=== PATIENT | male | born 1940 | race Caucasian/White ===

== ENCOUNTER 2018-09-09 10:43 | Emergency (ER) | payer MEDICARE, OTHER ==
[2018-09-09 11:08] VITALS: RESP 18
[2018-09-09 11:15] LABS: Basophils % (A) 0 %; Eosinophils # (A) 0.1 k/uL (0-0.7); Eosinophils % (A) 1 %; HCT 38.2 % (39.0-53.0); HGB 12.6 gm/dL (13.0-17.5); Lymphocytes # (A) 0.9 k/uL (1.0-4.8); Lymphocytes % (A) 11 %; MCH 28.6 pg (25.0-35.0); MCHC 32.9 g/dL (31.0-37.0); MCV 86.9 fL (80.0-100.0); Mean Platelet Volume 7.4; Monocytes # (A) 0.4 k/uL (0-1.0); Monocytes % (A) 4 %; Neutrophils # (A) 6.8 k/uL (1.3-7.7); Neutrophils % (A) 82 %; Platelet Count 187 k/uL (150-450); RDW 14.5 % (11.5-15.5); WBC 8.3 k/uL (3.8-10.6)
[2018-09-09 11:25] LABS: ALT 43 U/L (21-72); AST 32 U/L (17-59); Albumin 3.9 g/dL (3.5-5.0); Alkaline Phosphatase 91 U/L (38-126); Anion Gap 6 mmol/L; Blood Urea Nitrogen 20 mg/dL (9-20); Calcium 8.9 mg/dL (8.4-10.2); Carbon Dioxide 29 mmol/L (22-30); Chloride 105 mmol/L (98-107); Glucose 102 mg/dL (74-99); Potassium 4.8 mmol/L (3.5-5.1); Sodium 140 mmol/L (137-145); Total Bilirubin 1.2 mg/dL (0.2-1.3); Total Protein 7.7 g/dL (6.3-8.2)
[2018-09-09 11:32] LABS: INR 1.1 (<1.2); Partial Thromboplastin Time 25.5 sec (22.0-30.0); Prothrombin Time 11.2 sec (9.0-12.0)
--- NOTE | 2018-09-09 11:33 | XR ---
EXAMINATION TYPE: XR chest 2V DATE OF EXAM: 09/09/2018 HISTORY: altered mental status. REFERENCE: NONE. FINDINGS: The lungs are overinflated. Heart size is upper limits of normal. There is unfolding of the thoracic aorta. There is minimal atelectasis at the left lung base. No pleural fluid is seen. IMPRESSION: 1. COPD. 2. BORDERLINE CARDIOMEGALY. 3. MINIMAL ATELECTASIS, LEFT LUNG BASE.
[2018-09-09 11:35] LABS: Creatine Kinase 87 U/L (55-170)
--- NOTE | 2018-09-09 11:39 | CT ---
EXAMINATION TYPE: CT brain jose orr DATE OF EXAM: 09/09/2018 COMPARISON: NONE HISTORY: Syncope CT DLP: 1397.7 mGycm Automated exposure control for dose reduction was used. TECHNIQUE: CT scan of the head and cervical spine are performed without contrast. FINDINGS: BRAIN: There are generalized changes of sulcal prominence and ventriculomegaly, compatible with atrop hic change. There is diffuse periventricular white matter lucency, compatible with chronic white jasmyn er ischemic change. There is no acute focal lesion, mass effect or midline shift identified. I do not see evidence of intracranial blood. There is mucoperiosteal thickening involving the maxillary and ethmoidal sinuses. The bony calvarium is intact. IMPRESSION: 1. NO ACUTE INTRACRANIAL ABNORMALITY. 2. DEGENERATIVE CHANGE. 3. CHRONIC SINUS MUCOSAL DISEASE. CERVICAL SPINE: There is emphysematous change within the lungs. There is apical scarring present bila terally. Prevertebral soft tissues are normal. There is a reversal of the normal cervical lordosis. There is a minor antegrade listhesis of C4 on C5 . Alignment is otherwise normal. Atlantoaxial relationships are normal. There is diffuse degenerative disc disease and hypertrophic spondylosis with relative sparing of C2-3. There is diffuse uncoverteb ral joint disease. There is facet arthropathy bilaterally at C2-3 and C3-4 as well as C4-5. No defini te protrusion is seen. No fracture is seen. IMPRESSION: 1. NO ACUTE OSSEOUS LESION. 2. MODERATE DEGENERATIVE CHANGE.
[2018-09-09 11:46] LABS: Creatine Kinase MB 0.5 ng/mL (0.0-2.4); Troponin I <0.012 ng/mL (0.000-0.034)
[2018-09-09] MEDS ORDERED: SODIUM CHLORIDE 0.9% 1,000 ML IV ONE (12:12)
--- NOTE | 2018-09-09 12:13 | ED ---
General Adult HPI - General Chief complaint: Syncope Stated complaint: Syncope Time Seen by Provider: 09/09/18 10:47 Source: patient, EMS, RN notes reviewed, old records reviewed Mode of arrival: EMS Limitations: no limitations - History of Present Illness Initial comments: 78-year-old male presents with syncopal episode. History obtained from the patient, his , and EMS. 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 He was unresponsive for approximately 10 minutes according to his . Patient was breathing during this time with normal color. When he awoke he was somewhat confused for approximately 30 minutes. No jerking movement. No bowel or bladder incontinence. Patient denies any preceding chest pain or palpitations. No history of arrhythmia. Denies pain complaints. No chest pain or abdominal pain. Patient does have history of abdominal aortic aneurysm status post repair. Denies pain or swelling in the lower extremities. Denies headache. Denies vision changes. Denies focal numbness or weakness. He has had cough or cold symptoms over the past one week similar to other family members. He has had decreased oral intake over this time as well. - Related Data Home Medications Medication Instructions Recorded Confirmed Ascorbic Acid [Vitamin C] 1,000 mg PO DAILY 09/09/18 09/09/18 Aspirin [Boyle Aspirin EC] 81 mg PO DAILY 09/09/18 09/09/18 Atorvastatin [Lipitor] 10 mg PO HS 09/09/18 09/09/18 Cholecalciferol [Vitamin D3] 1,000 unit PO DAILY 09/09/18 09/09/18 Cyanocobalamin (Vitamin B-12) 1,000 mcg PO DAILY 09/09/18 09/09/18 [Vitamin B-12] Fish Oil/Dha/Epa [Fish Oil 1,200 1 cap PO DAILY 09/09/18 09/09/18 mg Fish Oil] Tamsulosin [Flomax] 0.4 mg PO HS 09/09/18 09/09/18 Allergies Allergy/AdvReac Type Severity Reaction Status Date / Time No Known Allergies Allergy Verified 09/09/18 11:29 Review of Systems ROS Statement: Those systems with pertinent positive or pertinent negative responses have been documented in the HPI. ROS Other: All systems not noted in ROS Statement are negative. Past Medical History Past Medical History: Hyperlipidemia, Prostate Disorder History of Any Multi-Drug Resistant Organisms: None Reported Additional Past Surgical History / Comment(s): AAA repair Past Psychological History: No Psychological Hx Reported Smoking Status: Former smoker Past Alcohol Use History: Occasional Past Drug Use History: None Reported General Exam Limitations: no limitations General appearance: alert, in no apparent distress Head exam: Present: atraumatic, normocephalic Eye exam: Present: normal appearance, PERRL, EOMI ENT exam: Present: mucous membranes dry, other (Ecchymosis right lateral tongue) Respiratory exam: Present: rales (Faint crackles bilateral lung bases). Absent : respiratory distress, rhonchi GI/Abdominal exam: Present: soft. Absent: distended, tenderness, guarding, rebound Extremities exam: Present: normal inspection, normal capillary refill, other ( Bilateral DP and PT pulses present). Absent: pedal edema Neurological exam: Present: alert, oriented X3, CN II-XII intact. Absent: motor sensory deficit Psychiatric exam: Present: normal affect, normal mood Skin exam: Present: warm, dry, intact. Absent: cyanosis, diaphoretic Course Vital Signs 09/09/18 09/09/18 09/09/18 10:45 11:38 12:37 Temperature 98.2 F Pulse Rate 77 76 80 Respiratory 18 18 18 Rate Blood Pressure 163/99 161/80 152/87 O2 Sat by Pulse 97 98 100 Oximetry 09/09/18 13:12 Temperature Pulse Rate 105 H Respiratory 18 Rate Blood Pressure 160/103 O2 Sat by Pulse 99 Oximetry - Reevaluation(s) Reevaluation #1: 09/09/18 13:08 Patient has witnessed tonic-clonic seizure while emergency department, lasting approximately 3 minutes. He is postictal phase given Ativan and loaded with Blood. EKG Findings - EKG Comments: EKG Findings:: EKG obtained at 1056, normal sinus rhythm, ventricular rate of 76 , PA interval 184, QRS duration 94, QTC 438. EKG obtained at 1146, sinus rhythm , rate 70, PA interval 176, castration 90, QTC 440, no ST segment changes Medical Decision Making - Medical Decision Making 78-year-old male presenting with episode at home where he collapsed and was unresponsive, no witnessed seizure activity at home. Patient does have contusion and ecchymosis to the right tongue on initial evaluation. While in the emergency Department patient has witnessed tonic-clonic seizure lasting approximately 3 minutes. Workup reveals a normal CBC, normal CMP, head CT negative for intracranial hemorrhage or mass effect. Chest x-ray shows cardiomegaly with no other acute findings. Patient has remote history of seizure disorder but has been seizure free for the past 40 years. He is not on any antiepileptics. He is initiated on Keppra in the emergency department. He will be transferred to outside hospital for neurology evaluation. There is no neurology available at this institution. Case discussed with Dr. Anguiano at [facility] who will accept transfer. - Lab Data Result diagrams: 09/09/18 11:05 09/09/18 11:05 Lab Results 09/09/18 09/09/18 09/09/18 Range/Units 11:05 11:05 11:05 WBC 8.3 (3.8-10.6) k/uL RBC 4.40 (4.30-5.90) m/uL Hgb 12.6 L (13.0-17.5) gm/dL Hct 38.2 L (39.0-53.0) % MCV 86.9 (80.0-100.0) fL MCH 28.6 (25.0-35.0) pg MCHC 32.9 (31.0-37.0) g/dL RDW 14.5 (11.5-15.5) % Plt Count 187 (150-450) k/uL Neutrophils % 82 % Lymphocytes % 11 % Monocytes % 4 % Eosinophils % 1 % Basophils % 0 % Neutrophils # 6.8 (1.3-7.7) k/uL Lymphocytes # 0.9 L (1.0-4.8) k/uL Monocytes # 0.4 (0-1.0) k/uL Eosinophils # 0.1 (0-0.7) k/uL Basophils # 0.0 (0-0.2) k/uL PT (9.0-12.0) sec INR (<1.2) APTT (22.0-30.0) sec Sodium 140 (137-145) mmol/L Potassium 4.8 (3.5-5.1) mmol/L Chloride 105 (98-107) mmol/L Carbon Dioxide 29 (22-30) mmol/L Anion Gap 6 mmol/L BUN 20 (9-20) mg/dL Creatinine 0.78 (0.66-1.25) mg/dL Est GFR (CKD-EPI)AfAm >90 (>60 ml/min/1.73 sqM) Est GFR (CKD-EPI)NonAf 86 (>60 ml/min/1.73 sqM) Glucose 102 H (74-99) mg/dL Calcium 8.9 (8.4-10.2) mg/dL Total Bilirubin 1.2 (0.2-1.3) mg/dL AST 32 (17-59) U/L ALT 43 (21-72) U/L Alkaline Phosphatase 91 (38-126) U/L Total Creatine Kinase 87 (55-170) U/L CK-MB (CK-2) 0.5 (0.0-2.4) ng/mL CK-MB (CK-2) Rel Index 0.6 Troponin I <0.012 (0.000-0.034) ng/mL Total Protein 7.7 (6.3-8.2) g/dL Albumin 3.9 (3.5-5.0) g/dL Urine Color Urine Appearance (Clear) Urine pH (5.0-8.0) Ur Specific [place] (1.001-1.035) Urine Protein (Negative) Urine Glucose (UA) (Negative) Urine Ketones (Negative) Urine Blood (Negative) Urine Nitrite (Negative) Urine Bilirubin (Negative) Urine Urobilinogen (<2.0) mg/dL Ur Leukocyte Esterase (Negative) Urine RBC (0-5) /hpf Urine WBC (0-5) /hpf Urine Mucus (None) /hpf 09/09/18 09/09/18 Range/Units 11:05 11:36 WBC (3.8-10.6) k/uL RBC (4.30-5.90) m/uL Hgb (13.0-17.5) gm/dL Hct (39.0-53.0) % MCV (80.0-100.0) fL MCH (25.0-35.0) pg MCHC (31.0-37.0) g/dL RDW (11.5-15.5) % Plt Count (150-450) k/uL Neutrophils % % Lymphocytes % % Monocytes % % Eosinophils % % Basophils % % Neutrophils # (1.3-7.7) k/uL Lymphocytes # (1.0-4.8) k/uL Monocytes # (0-1.0) k/uL Eosinophils # (0-0.7) k/uL Basophils # (0-0.2) k/uL PT 11.2 (9.0-12.0) sec INR 1.1 (<1.2) APTT 25.5 (22.0-30.0) sec Sodium (137-145) mmol/L Potassium (3.5-5.1) mmol/L Chloride (98-107) mmol/L Carbon Dioxide (22-30) mmol/L Anion Gap mmol/L BUN (9-20) mg/dL Creatinine (0.66-1.25) mg/dL Est GFR (CKD-EPI)AfAm (>60 ml/min/1.73 sqM) Est GFR (CKD-EPI)NonAf (>60 ml/min/1.73 sqM) Glucose (74-99) mg/dL Calcium (8.4-10.2) mg/dL Total Bilirubin (0.2-1.3) mg/dL AST (17-59) U/L ALT (21-72) U/L Alkaline Phosphatase (38-126) U/L Total Creatine Kinase (55-170) U/L CK-MB (CK-2) (0.0-2.4) ng/mL CK-MB (CK-2) Rel Index Troponin I (0.000-0.034) ng/mL Total Protein (6.3-8.2) g/dL Albumin (3.5-5.0) g/dL Urine Color Yellow Urine Appearance Clear (Clear) Urine pH 7.5 (5.0-8.0) Ur Specific [place] 1.018 (1.001-1.035) Urine Protein 2+ H (Negative) Urine Glucose (UA) Negative (Negative) Urine Ketones Negative (Negative) Urine Blood Trace H (Negative) Urine Nitrite Negative (Negative) Urine Bilirubin Negative (Negative) Urine Urobilinogen <2.0 (<2.0) mg/dL Ur Leukocyte Esterase Negative (Negative) Urine RBC 7 H (0-5) /hpf Urine WBC 5 (0-5) /hpf Urine Mucus Rare H (None) /hpf Disposition Clinical Impression: Seizure, Postictal state Disposition: OTHER INSTITUTION NOT DEFINED Condition: Stable Is patient prescribed a controlled substance at d/c from ED?: No Referrals: Fransisco Moore MD [Primary Care Provider] - 1-2 days Time of Disposition: 13:20 - Out of Hospital Transfer - Req. Specs Out of Hospital Transfer - Requested Specifics: Other Emergency Center ( Transferred to [facility])
[2018-09-09 12:34] LABS: Appearance,Urine Clear (Clear); Bilirubin,Urine Negative (Negative); Blood,Urine Trace (Negative); Color,Urine Yellow; Glucose,Urine (UA) Negative (Negative); Ketones,Urine Negative (Negative); Leukocyte Esterase,Urine Negative (Negative); Mucus,Urine Rare /hpf; Nitrite,Urine Negative (Negative); PH, Urine 7.5 (5.0-8.0); Protein,Urine 2+ (Negative); RBC,Urine 7 /hpf (0-5); Specific Gravity,Urine 1.018 (1.001-1.035); Urobilinogen,Urine <2.0 mg/dL (<2.0); WBC,Urine 5 /hpf (0-5)
[2018-09-09] MEDS ORDERED: LORazepam 2 MG/ML INJ IV STA ×2 (13:05)
[2018-09-09] MEDS ORDERED: levETIRAcetam IV 1,000 MG in SALINE 1 100ML.BAG IVPB STA (13:13)
[2018-09-09] MEDS ORDERED: SODIUM CHLORIDE 0.9% 1,000 ML IV SCH (13:15)
[2018-09-09 14:02] VITALS: BP 160/89; PULSE 71; TEMP 97.8
== END 2018-09-09 14:01 | disposition other institution (70) ==
LOC: EC 10:43
DX: R55 Syncope and collapse (principal); G40.909 Epilepsy, unspecified, not intractable, without status epilepticus; E78.5 Hyperlipidemia, unspecified; N42.9 Disorder of prostate, unspecified; Z87.891 Personal history of nicotine dependence; Z79.82 Long term (current) use of aspirin; Z79.899 Other long term (current) drug therapy; Z53.8 Procedure and treatment not carried out for other reasons
CPT/HCPCS: 36415; 93005; 80053; 82550; 82553; 84484; 85025; 85610; 85730; 81001; 71046; 72125; 70450; 99285; 96374; 96375; 96361 ×2; J2060; J1953